=== PATIENT | female | born 1965 | race Caucasian/White ===

== ENCOUNTER 2016-08-31 08:20 | Inpatient (IN) | payer MEDICAID ==
[~2016-08-31] VITALS: Ht 157.5 cm; Wt 74.0 kg
[~2016-08-31 08:20] MED LIST: ALEN70SO PO; ASPI-407 PO; BECL0.07 INH; BENA1POW PO; BENZ100C97 PO; CARV3.1213 PO; CLOP75TA28 PO; DIPH25CA6 PO; FLUT250M2 INH; MEC25T PO; PANT40TA2 PO; SIMV-8 PO
[2016-08-31] MEDS ORDERED: methylPREDNISolone SOD SUCC 125 MG/2 ML VL IV ONE (08:30)
[2016-08-31] MEDS ORDERED: MORPHINE SULFATE 4 MG/ML SYRG IV ONE (08:45)
[2016-08-31] MEDS ORDERED: ONDANSETRON HCL 4 MG/2 ML VIAL IV ONE (08:45)
[2016-08-31 09:04] VITALS: BP 152/74
[2016-08-31 09:43] LABS: Albumin 2.3 g/dL (3.4-5.0); BUN/Creatinine Ratio 19.6; Bilirubin, Total 1.8 mg/dL (0.2-1.0); Calcium 7.9 mg/dL (8.5-10.1); Magnesium 2.2 mg/dL (1.6-2.6); Total Protein 7.5 g/dL (6.4-8.2)
[2016-08-31 09:50] LABS: Lactic Acid 5.4 mmol/L (0.4-2.0)
[2016-08-31 09:53] LABS: REFLEX LACTIC ACID YES OR NO YES
[2016-08-31 09:58] LABS: DEFINITIVE VIEW TRANSMISSION; Hematocrit 36.1 % (36.0-46.0); Hemoglobin 11.3 g/dL (12.2-16.2); Mean Corpuscular Hemoglobin 32.6 pg (28.0-32.0); Mean Corpuscular Hgb Conc. 31.2 g/dL (32.0-36.0); Mean Corpuscular Volume 104.6 fL (80.0-100.0); Mean Platelet Volume 9.1 fL (7.4-10.4); Platelet Count (auto) 498 10^3/uL (140-450); SUSPECT VIEW TRANSMISSION; White Blood Cell 23.7 10^3/uL (4.4-10.8)
[2016-08-31 10:08] LABS: Potassium 2.8 mmol/L (3.5-5.1)
[2016-08-31 10:20] LABS: Lactic Acid 4.9 mmol/L (0.4-2.0)
[2016-08-31] MEDS ORDERED: POTASSIUM CHL 20MEQ/100ML 100 ML IV ONE (10:30)
[2016-08-31 10:33] LABS: Metamyelocytes % 0; Myelocytes % 0; Promyelocytes % 0; Reactive Lymphocytes 0; Red Cell Distribution Width 23.1 % (11.6-16.0)
[2016-08-31 10:34] LABS: REFLEX LACTIC ACID YES OR NO NO
[2016-08-31 12:00] VITALS: BP 125/75
[2016-08-31 12:03] LABS: Anisocytosis Moderate; Macrocytosis Slight; Platelet Estimate Increased; Stomatocytes Few
[2016-08-31] MEDS ORDERED: cefTRIAXone 1GM/50ML D5W 50 ML IV ONE (12:15)
[2016-08-31] MEDS ORDERED: VANCOMYCIN PER PHARMACY 0 MG IV SCH (12:15)
[2016-08-31 12:29] LABS: Urine Bilirubin Negative (Negative); Urine Blood Negative /uL (Negative); Urine Color Yellow (Yellow); Urine Glucose Normal (Normal); Urine Hyaline Cast FEW /lpf (0 - 2); Urine Nitrite Negative (Negative); Urine RBC 1 /hpf (0 - 4); Urine Squamous Epithelial Cell FEW /hpf (<5)
[2016-08-31 12:33] LABS: Urine Ketone 1+ (Negative)
[2016-08-31] MEDS ORDERED: DEXTROSE (50%) 50ML SYRG IV PRN (12:45)
[2016-08-31] MEDS ORDERED: DOCUSATE SOD 100 MG CAP PO PRN (12:45)
[2016-08-31] MEDS ORDERED: HYDROcodone-ACET 5/325MG TAB PO PRN (12:45)
[2016-08-31] MEDS ORDERED: ACETAMINOPHEN 325 MG TAB PO PRN (12:45)
[2016-08-31] MEDS ORDERED: diphenhdrAMINE HCL 25 MG CAP PO PRN (12:45)
[2016-08-31] MEDS ORDERED: SODIUM CHLORIDE 0.9% 1,000 ML IV ONE (12:45)
[2016-08-31] MEDS ORDERED: NITROGLYCERIN 0.4 MG SL TAB SL PRN (12:45)
[2016-08-31] MEDS ORDERED: TEMAZEPAM 15 MG CAP PO PRN (12:45)
[2016-08-31] MEDS ORDERED: MECLIZINE HCL 25 MG TAB PO PRN (12:45)
[2016-08-31] MEDS ORDERED: MORPHINE SULF INJ 2 MG/ML SYRINGE 1ML IV PRN (12:45)
[2016-08-31] MEDS ORDERED: ALENDRONATE SODIUM 10 MG TAB PO SCH (12:45)
[2016-08-31] MEDS ORDERED: CARVEDILOL 3.125 MG TAB PO ONE (13:00)
[2016-08-31] MEDS ORDERED: BENAZEPRIL HCL 10 MG TAB PO ONE (13:00)
[2016-08-31] MEDS ORDERED: PANTOPRAZOLE 40 MG TAB PO ONE (13:00)
[2016-08-31] MEDS ORDERED: ASPirin-EC 81 mg tab PO ONE (13:00)
[2016-08-31] MEDS ORDERED: CLOPIDOGREL BISULFATE 75 MG TAB PO ONE (13:00)
[2016-08-31] MEDS ORDERED: BUDESONIDE (INHALATION) 0.5 MG/2 ML NEB NEB ONE (13:00)
[2016-08-31 13:20] LABS: Lactic Acid 2.4 mmol/L (0.4-2.0)
[2016-08-31] MEDS: SODIUM CHLOR 0.9% PF (SALINE LOCK) 10ML VIAL IV SCH ×2 (13:28→23:04)
[2016-08-31 13:34] LABS: BUN/Creatinine Ratio 23.6; Calcium 7.9 mg/dL (8.5-10.1); Potassium 3.5 mmol/L (3.5-5.1)
[2016-08-31 13:35] LABS: REFLEX LACTIC ACID YES OR NO NO
[2016-08-31 14:20] VITALS: BP 125/75
[2016-08-31 14:24] LABS: B-Type Natriuretic Peptide 892.34 pg/mL (0-100); Temperature: 23.4 C (20.0-25.0)
[2016-08-31] MEDS: IPRATROPIUM BROM 0.5 MG/2.5ML INH SOL NEB SCH ×3 (14:25→22:10)
[2016-08-31] MEDS: ALBUTEROL SULF 2.5 MG/0.5ML(0.5%) NEB SOLN NEB SCH ×3 (14:26→22:11)
[2016-08-31] MEDS: VANCOMYCIN 1GM/250ML D5W 250 ML IV SCH (14:52)
[2016-08-31] MEDS: ENOXAPARIN SOD 40 MG/0.4 ML SYRINGE SC SCH (14:52)
[2016-08-31] MEDS: BENZONATE PO SCH ×2 (15:03→22:00)
[2016-08-31] MEDS: ONDANSETRON HCL 4 MG/2 ML VIAL IV PRN ×2 (15:05→20:57)
[2016-08-31] MEDS: MORPHINE SULF INJ 2 MG/ML SYRINGE 1ML IV PRN ×2 (15:05→20:57)
[2016-08-31 15:30] VITALS: BP 125/75
[2016-08-31 16:57] VITALS: BP 125/75
[2016-08-31] MEDS: InsuLIN REG 1unit/0.01ml Soln (100units/ml) SC SCH ×2 (17:00→22:00)
[2016-08-31] MEDS: ACCU-CHEK COMFORT CURVE STRIP VI SCH ×2 (17:04→22:00)
[2016-08-31] MEDS: Boost Glucose Control 8 Ounces PO SCH ×2 (18:32→22:00)
[2016-08-31] MEDS: BOOST PLUS 8 ounce PO SCH ×2 (18:32→22:00)
[2016-08-31 20:30] VITALS: BP 116/76
[2016-08-31] MEDS ORDERED: ADVAIR 250/50 IN SCH ×2 (22:00)
[2016-08-31] MEDS ORDERED: FAMOTIDINE 20 MG TAB PO SCH (22:00)
[2016-08-31] MEDS: BUDESONIDE (INHALATION) 0.5 MG/2 ML NEB NEB SCH (22:11)
[2016-08-31] MEDS: ATORVASTATIN 20 MG TAB PO SCH (23:03)
[2016-08-31] MEDS: CARVEDILOL 3.125 MG TAB PO SCH (23:04)
[2016-09-01] VITALS (46 sets, daily range): BP systolic 83–137; BP diastolic 53–101
[2016-09-01] MEDS: ALBUTEROL SULF 2.5 MG/0.5ML(0.5%) NEB SOLN NEB SCH ×6 (01:56→23:04)
[2016-09-01] MEDS: IPRATROPIUM BROM 0.5 MG/2.5ML INH SOL NEB SCH ×6 (01:56→23:04)
[2016-09-01] MEDS: VANCOMYCIN 1GM/250ML D5W 250 ML IV SCH ×2 (02:30→14:01)
[2016-09-01] MEDS ORDERED: CARV3.1213 PO (03:08)
[2016-09-01] MEDS ORDERED: IPRIH INH (03:52)
[2016-09-01] MEDS ORDERED: SULF400T11 PO (03:52)
[2016-09-01] MEDS ORDERED: TOPI25TA84 PO (03:52)
[2016-09-01] MEDS ORDERED: NITR0.4S29 SL (03:52)
[2016-09-01] MEDS: ACCU-CHEK COMFORT CURVE STRIP VI SCH ×4 (05:57→22:00)
[2016-09-01] MEDS: InsuLIN REG 1unit/0.01ml Soln (100units/ml) SC SCH ×4 (05:57→22:00)
[2016-09-01] MEDS: SODIUM CHLOR 0.9% PF (SALINE LOCK) 10ML VIAL IV SCH ×4 (05:57→22:23)
[2016-09-01] MEDS: LORazepam 2MG/ML-1ML VIAL IV PRN ×2 (05:59→12:24)
[2016-09-01] MEDS: Boost Glucose Control 8 Ounces PO SCH ×4 (06:00→22:00)
[2016-09-01] MEDS ORDERED: ALENDRONATE SODIUM 10 MG TAB PO SCH (06:00)
[2016-09-01] MEDS: BOOST PLUS 8 ounce PO SCH ×4 (06:00→22:00)
[2016-09-01] MEDS: BENZONATE PO SCH ×3 (06:00→22:00)
[2016-09-01] MEDS: BUDESONIDE (INHALATION) 0.5 MG/2 ML NEB NEB SCH ×2 (06:05→19:35)
[2016-09-01 06:44] LABS: DEFINITIVE VIEW TRANSMISSION; Hematocrit 33.3 % (36.0-46.0); Hemoglobin 10.4 g/dL (12.2-16.2); Mean Corpuscular Hgb Conc. 31.1 g/dL (32.0-36.0); Mean Platelet Volume 8.5 fL (7.4-10.4); Platelet Count (auto) 464 10^3/uL (140-450); SUSPECT VIEW TRANSMISSION; White Blood Cell 24.8 10^3/uL (4.4-10.8)
[2016-09-01 06:57] LABS: Metamyelocytes % 0; Myelocytes % 0; Promyelocytes % 0; Reactive Lymphocytes 0; Red Cell Distribution Width 22.4 % (11.6-16.0)
[2016-09-01 07:21] LABS: Hypersegmented Neutrophils Present
[2016-09-01 07:22] LABS: Anisocytosis Moderate; Macrocytosis Slight; Stomatocytes Few
[2016-09-01 07:23] LABS: Platelet Estimate Increased
[2016-09-01 07:59] LABS: Albumin 2.2 g/dL (3.4-5.0); BUN/Creatinine Ratio 28.1; Bilirubin, Total 1.2 mg/dL (0.2-1.0); Calcium 8.1 mg/dL (8.5-10.1); Potassium 3.2 mmol/L (3.5-5.1); Total Protein 7.7 g/dL (6.4-8.2)
[2016-09-01] MEDS ORDERED: cefTRIAXone 1GM/50ML D5W 50 ML IV SCH (09:00)
[2016-09-01] MEDS: ENOXAPARIN SOD 40 MG/0.4 ML SYRINGE SC SCH (09:56)
[2016-09-01] MEDS: ASPirin-EC 81 mg tab PO SCH (10:00)
[2016-09-01] MEDS ORDERED: PANTOPRAZOLE 40 MG TAB PO SCH (10:00)
[2016-09-01] MEDS ORDERED: BENAZEPRIL HCL 10 MG TAB PO SCH (10:00)
[2016-09-01] MEDS: CARVEDILOL 3.125 MG TAB PO SCH ×2 (10:00→22:33)
[2016-09-01] MEDS ORDERED: MULTIPLE VITAMIN TAB PO SCH (10:00)
[2016-09-01] MEDS: CLOPIDOGREL BISULFATE 75 MG TAB PO SCH (10:00)
[2016-09-01] MEDS ORDERED: LEVOFLOXACIN 500MG 100 ML IV ONE (14:45)
[2016-09-01] MEDS ORDERED: MIDAZOLAM HCL 1MG/1ML-2 ML VIAL ONE (15:02)
[2016-09-01] MEDS ORDERED: SUCCINYLCHOLINE CHLORIDE 20 MG/ML 10ML VIAL IV ONE (15:03)
[2016-09-01] MEDS ORDERED: ROCURONIUM 10MG/ML 10ML VIAL IV ONE (15:03)
[2016-09-01] MEDS ORDERED: ETOMIDATE (2MG/ML) 20ML VIAL IV ONE (15:03)
[2016-09-01] MEDS ORDERED: MIDAZOLAM DRIP 100 mg/100mL NS 100 ML IV SCH (15:15)
[2016-09-01 15:32] LABS: INR 2.27 (0.9-1.15); Prothrombin Time 23.4 sec (9.37-12.3)
[2016-09-01] MEDS: SODIUM CHLORIDE 0.9% 1,000 ML IV SCH (16:30)
[2016-09-01] MEDS: NOREPINEPHRINE BITARTRATE 250 ML IV SCH (16:30)
[2016-09-01] MEDS: POTASSIUM CHL 20MEQ/100ML 100 ML IV SCH ×2 (16:37→18:37)
[2016-09-01] MEDS: MIDAZOLAM DRIP 100 mg/100mL NS 100 ML IV SCH (16:38)
[2016-09-01] MEDS ORDERED: SODIUM CHLORIDE 0.9% 500 ML IV ONE (17:15)
[2016-09-01] MEDS ORDERED: PIPERACILLIN-TAZOB 3.375GM 100 ML IV SCH (18:00)
[2016-09-01] MEDS: PIPERACILLIN-TAZOB 3.375GM 100 ML IV SCH (19:11)
[2016-09-01] MEDS ORDERED: LIDOCAINE 1% HCL (LOCAL ANESTH.) INJ 20ML MDV ID ONE (19:30)
[2016-09-01] MEDS: ATORVASTATIN 20 MG TAB PO SCH (22:33)
[2016-09-01] MEDS: MORPHINE SULF INJ 2 MG/ML SYRINGE 1ML IV PRN (23:32)
[2016-09-02] VITALS (79 sets, daily range): BP systolic 56–140; BP diastolic 31–81
[2016-09-02] MEDS ORDERED: fentaNYL Drip 2500mCg/250mlNS 250 ML IV ONE (00:44)
[2016-09-02] MEDS: SODIUM CHLORIDE 0.9% 1,000 ML IV SCH ×3 (00:45→18:00)
[2016-09-02] MEDS ORDERED: MIDAZOLAM DRIP 100 mg/100mL NS 100 ML IV ONE (01:01)
[2016-09-02] MEDS: PROPOFOL 100 ML IV SCH (01:13)
[2016-09-02] MEDS: fentaNYL Drip 2500mCg/250mlNS 250 ML IV SCH ×2 (01:25→21:35)
[2016-09-02] MEDS: VANCOMYCIN 1GM/250ML D5W 250 ML IV SCH (02:00)
[2016-09-02] MEDS: IPRATROPIUM BROM 0.5 MG/2.5ML INH SOL NEB SCH ×4 (02:45→14:20)
[2016-09-02] MEDS: ALBUTEROL SULF 2.5 MG/0.5ML(0.5%) NEB SOLN NEB SCH ×4 (02:45→14:20)
[2016-09-02 06:21] LABS: DEFINITIVE VIEW TRANSMISSION; Hematocrit 30.6 % (36.0-46.0); Hemoglobin 9.5 g/dL (12.2-16.2); Mean Corpuscular Hemoglobin 33.5 pg (28.0-32.0); Mean Corpuscular Hgb Conc. 30.9 g/dL (32.0-36.0); Mean Corpuscular Volume 108.3 fL (80.0-100.0); Platelet Count (auto) 393 10^3/uL (140-450); SUSPECT VIEW TRANSMISSION; White Blood Cell 19.6 10^3/uL (4.4-10.8)
[2016-09-02 06:36] LABS: Red Cell Distribution Width 22.4 % (11.6-16.0)
[2016-09-02 06:37] LABS: Metamyelocytes % 0; Myelocytes % 0; Promyelocytes % 0; Reactive Lymphocytes 0
[2016-09-02] MEDS: BUDESONIDE (INHALATION) 0.5 MG/2 ML NEB NEB SCH (06:47)
[2016-09-02 06:50] LABS: Potassium 3.6 mmol/L (3.5-5.1)
[2016-09-02 07:05] LABS: Albumin 1.8 g/dL (3.4-5.0); BUN/Creatinine Ratio 21.8; Bilirubin, Total 1.3 mg/dL (0.2-1.0); Calcium 7.4 mg/dL (8.5-10.1); Total Protein 6.7 g/dL (6.4-8.2)
[2016-09-02] MEDS: SODIUM CHLOR 0.9% PF (SALINE LOCK) 10ML VIAL IV SCH ×3 (08:02→22:00)
[2016-09-02] MEDS: BENZONATE PO SCH (08:02)
[2016-09-02] MEDS: Boost Glucose Control 8 Ounces PO SCH (08:02)
[2016-09-02] MEDS: PIPERACILLIN-TAZOB 3.375GM 100 ML IV SCH ×4 (08:03→18:00)
[2016-09-02] MEDS: BOOST PLUS 8 ounce PO SCH (08:03)
[2016-09-02] MEDS: ACCU-CHEK COMFORT CURVE STRIP VI SCH ×4 (08:04→22:00)
[2016-09-02] MEDS: NOREPINEPHRINE BITARTRATE 250 ML IV SCH (08:05)
[2016-09-02] MEDS: InsuLIN REG 1unit/0.01ml Soln (100units/ml) SC SCH ×4 (08:09→22:00)
[2016-09-02] MEDS ORDERED: LEVOFLOXACIN 500MG 100 ML IV SCH (09:00)
[2016-09-02] MEDS: ASPirin-EC 81 mg tab PO SCH (10:00)
[2016-09-02] MEDS: ENOXAPARIN SOD 40 MG/0.4 ML SYRINGE SC SCH (10:00)
[2016-09-02] MEDS ORDERED: LINEZOLID 600MG/300ML 300 ML IV SCH (10:00)
[2016-09-02] MEDS ORDERED: ALBUMIN 25% 100 ML IV ONE (10:30)
[2016-09-02] MEDS ORDERED: SODIUM CHLORIDE 0.9% 1,000 ML IV ONE (10:30)
[2016-09-02] MEDS ORDERED: Diabetisource AC 1 Liter GT SCH (10:30)
[2016-09-02] MEDS ORDERED: PANTOPRAZOLE SODIUM 40 MG/10 ML VIAL IV ONE (10:45)
[2016-09-02] MEDS ORDERED: PHENYLEPHRINE IV 250 ML IV ONE ×3 (11:03→23:21)
[2016-09-02] MEDS: PHENYLEPHRINE INJ 20 MG in SODIUM CHL 0.9% 250 ML IV SCH ×2 (11:28→21:16)
[2016-09-02] MEDS: CLOPIDOGREL BISULFATE 75 MG TAB PO SCH (11:28)
[2016-09-02] MEDS ORDERED: VASOPRESSIN 50 UNITS in SODIUM CHL 0.9% 247.5 ML IV SCH (11:30)
[2016-09-02] MEDS ORDERED: SODIUM BICARBONATE 8.4 % INJ 50ML VIAL IV ONE ×2 (13:15→17:00)
[2016-09-02] MEDS ORDERED: HYDROCORTISONE SOD SUCC 100 MG/2ML INJ VIAL IV ONE (13:15)
[2016-09-02] MEDS ORDERED: EPINEPHrine HCL INJECTION 4 MG in D5W 5% 250 ML IV SCH (13:15)
[2016-09-02] MEDS: LINEZOLID 600MG/300ML 300 ML IV SCH ×2 (13:52→22:00)
[2016-09-02] MEDS: SODIUM BICARBONATE 50ML VIAL 100 ML in SOD CHL 0.45% 1,000 ML IV SCH ×2 (13:53→23:00)
[2016-09-02] MEDS: FREE WATER GT SCH ×2 (13:53→17:49)
[2016-09-02 15:15] LABS: Anisocytosis Moderate; Macrocytosis Moderate; Platelet Estimate Adequate
[2016-09-02 15:16] LABS: Stomatocytes Moderate
[2016-09-02] MEDS: MIDAZOLAM DRIP 100 mg/100mL NS 100 ML IV SCH (15:58)
[2016-09-02] MEDS ORDERED: SODIUM BICARBONATE 8.4% INJ 50ML SYRINGE ONE (16:38)
[2016-09-02] MEDS: HYDROCORTISONE SOD SUCC 100 MG/2ML INJ VIAL IV SCH (18:00)
[2016-09-03] VITALS (21 sets, daily range): BP systolic 53–105; BP diastolic 33–76
[2016-09-03] MEDS: HYDROCORTISONE SOD SUCC 100 MG/2ML INJ VIAL IV SCH
[2016-09-03] MEDS: PIPERACILLIN-TAZOB 3.375GM 100 ML IV SCH
[2016-09-03] MEDS: FREE WATER GT SCH
[2016-09-03] MEDS: PROPOFOL 100 ML IV SCH (01:13)
[2016-09-03] MEDS ORDERED: PHENYLEPHRINE IV 500 ML IV ONE (01:21)
[2016-09-03] MEDS: SODIUM CHLORIDE 0.9% 1,000 ML IV SCH (03:30)
[2016-09-03] MEDS ORDERED: PHENYLEPHRINE IV 250 ML IV ONE (05:45)
[2016-09-03] MEDS: IPRATROPIUM BROM 0.5 MG/2.5ML INH SOL NEB SCH (06:25)
[2016-09-03] MEDS: ALBUTEROL SULF 2.5 MG/0.5ML(0.5%) NEB SOLN NEB SCH (06:25)
[2016-09-03] MEDS ORDERED: PANTOPRAZOLE SODIUM 40 MG/10 ML VIAL IV SCH (10:00)
== END 2016-09-03 08:26 | disposition expired | DRG 720 ==
LOC: ER 08:20 → EDUNIT# 08:20 → TELE 08:21 → DOU IN ICU 20:24
PROVIDERS: ADMIT Internal Medicine; ATTEND Internal Medicine
PROC: 5A09457 Assistance with Respiratory Ventilation, 24-96 Consecutive Hours, Continuous Positive Airway Pressure (ICD-10-PCS; principal; 2016-08-31)
PROC: 5A1945Z Respiratory Ventilation, 24-96 Consecutive Hours (ICD-10-PCS; 2016-09-01)
PROC: 0BH17EZ Insertion of Endotracheal Airway into Trachea, Via Natural or Artificial Opening (ICD-10-PCS; 2016-09-01)
PROC: 02HV33Z Insertion of Infusion Device into Superior Vena Cava, Percutaneous Approach (ICD-10-PCS; 2016-09-01)
DX: A41.9 Sepsis, unspecified organism (principal); J96.01 Acute respiratory failure with hypoxia; R65.21 Severe sepsis with septic shock; E43 Unspecified severe protein-calorie malnutrition; J15.9 Unspecified bacterial pneumonia; I11.0 Hypertensive heart disease with heart failure; J44.0 Chronic obstructive pulmonary disease with (acute) lower respiratory infection; J45.901 Unspecified asthma with (acute) exacerbation; I50.9 Heart failure, unspecified; J44.1 Chronic obstructive pulmonary disease with (acute) exacerbation; Z99.81 Dependence on supplemental oxygen; E83.51 Hypocalcemia; D63.8 Anemia in other chronic diseases classified elsewhere; F41.9 Anxiety disorder, unspecified; B19.20 Unspecified viral hepatitis C without hepatic coma; I25.10 Atherosclerotic heart disease of native coronary artery without angina pectoris; F32.9 Major depressive disorder, single episode, unspecified; B95.61 Methicillin susceptible Staphylococcus aureus infection as the cause of diseases classified elsewhere; Z66 Do not resuscitate; E87.6 Hypokalemia; E11.9 Type 2 diabetes mellitus without complications; I25.2 Old myocardial infarction; Z95.1 Presence of aortocoronary bypass graft; Z87.891 Personal history of nicotine dependence; Z85.41 Personal history of malignant neoplasm of cervix uteri; Z90.49 Acquired absence of other specified parts of digestive tract; Z98.890 Other specified postprocedural states; Z88.6 Allergy status to analgesic agent; Z83.3 Family history of diabetes mellitus; Z68.29 Body mass index [BMI] 29.0-29.9, adult; Z82.5 Family history of asthma and other chronic lower respiratory diseases; Z79.899 Other long term (current) drug therapy; Z79.82 Long term (current) use of aspirin
CPT/HCPCS: 36415; 36569; 36600; 71010; 80048; 80053; 80202; 81001; 82805; 82962; 83036; 83605; 83735; 83880; 84484; 85007; 85025; 85027; 85610; 87040; 87070; 87077; 87081; 87086; 87088; 87186; 87205; 93005; 94002; 94003; 94640; 94660; 96361; 96365; 96375; 99291; C9113; J0171; J0330; J0696; J1815; J1956; J2250; J2405; J2543; J2704; J3010; J3480; J3490; J7060